=== PATIENT | male | born 1945 | race Caucasian/White ===

== ENCOUNTER 2022-06-25 13:03 | Emergency (ER) | payer OTHER ==
[~2022-06-25] VITALS: Ht 165.1 cm; Wt 162.2 kg
[2022-06-25 13:14] VITALS: BP 134/74
== END 2022-06-25 14:39 | disposition left against medical advice (07) ==
LOC: ER 13:03
DX: R10.2 Pelvic and perineal pain (principal); Z53.21 Procedure and treatment not carried out due to patient leaving prior to being seen by health care provider